=== PATIENT | male | born 1990 | race Two or more races ===

== ENCOUNTER → 2020-06-03 | Emergency (ER) | payer OTHER | END | disposition left against medical advice (07) | LOC: ER 01:40 | DX: R22.0 Localized swelling, mass and lump, head (principal); Z53.21 Procedure and treatment not carried out due to patient leaving prior to being seen by health care provider ==

== ENCOUNTER 2021-05-02 17:54 | Emergency (ER) | payer OTHER ==
[~2021-05-02] VITALS: Ht 182.9 cm; Wt 97.5 kg
[2021-05-02 19:03] VITALS: BP 140/94
== END 2021-05-02 19:13 | disposition home or self-care (01) ==
LOC: ER 17:54
DX: J45.901 Unspecified asthma with (acute) exacerbation (principal); F17.210 Nicotine dependence, cigarettes, uncomplicated